=== PATIENT | female | born 1960 | race Caucasian/White ===

== ENCOUNTER → 2024-07-14 12:58 | Outpatient (REF) | payer BC, SELFPAY | LOC: RAD 12:58 | PROVIDERS: ATTENDING PHYSICIAN Urology; FAMILY PHYSICIAN Family Medicine | DX: N30.10 Interstitial cystitis (chronic) without hematuria (principal); N39.41 Urge incontinence; N81.6 Rectocele | CPT/HCPCS: 76770; 76856 ==

== ENCOUNTER 2024-07-18 14:00 | Emergency (ER) | payer BC, SELFPAY ==
[2024-07-18 14:04] VITALS: BP 143/79
[2024-07-18 14:31] LABS: Urine Albumin 1+ (Neg - Trace); Urine Bilirubin Negative (Negative); Urine Character Slightly Cloudy (Clear); Urine Color Yellow; Urine Glucose 3+ (Negative); Urine Ketone 2+ (Negative); Urine Leukocyte 2+ (Negative); Urine Nitrite Negative (Negative); Urine Occult Blood 3+ (Negative); Urine Urobilinogen Negative (Neg - 1+)
[2024-07-18 14:32] LABS: % Basophils 0.5 % (0-2); % Eosinophils 0.2 % (0-6); % Immature Granulocytes 0.4 % (0-0.5); % Lymphocytes 19.7 % (20.5-51.1); % Monocytes 4.3 % (1.7-9.3); % Neutrophils 74.9 % (42.2-75.2); Absolute Basophils 0.1 10^3/uL (0-0.2); Absolute Immature Granulocytes 0.1 10^3/uL (0-0.05); Absolute Lymphocytes 2.9 10^3/uL (1.2-3.4); Absolute Monocytes 0.6 10^3/uL (0.1-0.6); Absolute Neutrophils 11.2 10^3/uL (1.4-6.5); Hematocrit 42.1 % (37.0-47.0); Hemoglobin 13.9 g/dL (12.0-16.0); Mean Corpuscular Volume 87.9 fL (81.0-99.0); Mean Platelet Volume 9.5 fL (7.4-10.4); Nucleated Red Blood Cells % 0 %; Platelet Count 360 10^3/uL (130-400); Red Blood Cell Count 4.79 10^6/uL (4.20-5.40); Red Cell Dist. Width 13.4 % (11.5-14.5); White Blood Cell Count 14.9 10^3/uL (4.8-10.8)
[2024-07-18 14:42] LABS: ALT (SGPT) 43 U/L (0-35); AST (SGOT) 32 U/L (14-36); Albumin 4.7 g/dl (3.5-5.0); Alkaline Phosphatase 82 U/L (38-126); Blood Urea Nitrogen 18 mg/dl (7-17); Calcium 9.9 mg/dl (8.4-10.2); Carbon Dioxide 23 mmol/L (22-30); Chloride 103 mmol/L (98-107); Glucose 256 mg/dl (70-99); Potassium 3.6 mmol/L (3.5-5.1); Sodium 137 mmol/L (135-145); Total Bilirubin 0.6 mg/dl (0.2-1.3); Total Protein 7.2 g/dl (6.3-8.2); eGFR > 60.00
[2024-07-18 14:45] LABS: Urine Bacteria Few (Negative); Urine Red Blood Cell 30-40 /HPF (0-2); Urine White Cell >100 /HPF (0-5)
--- NOTE | 2024-07-18 15:23 | ED.GENMED ---
History of Present Illness
<Geneva Gallagher PA-C - Last Filed: 07/18/24 22:16>
General
Chief Complaint: Abnormal Lab Value
Source: patient
Exam Limitations: none
Time Seen by Provider: 07/18/24 15:21
Nursing documentation reviewed up to this point in time: agreed with
History of Present Illness
History of Present Illness:
This is a 63-year-old female with past medical history of interstitial cystitis, diabetes, IBS presents emergency department today with concerns of elevated white blood cell count and pelvic pain and burning with urination. Patient states that she
has had interstitial cystitis and recurrent UTIs for many years however she started to have lower abdominal pain and noted mental status change the past few days. Patient states that she felt loopy and more lethargic and reported to [facility]. Patient states that at the time, they noted her to be acidotic on her blood work noted elevated white blood cell count. Patient was told that she has sepsis and was told she has possible cancer on her CAT scan. Patient states that she
was not receiving appropriate care at that hospital and left that hospital AMA. Patient states that the CAT scan was read incorrectly at that time and is requesting a repeat CAT scan today. Patient denies any fevers or chills, chest pain,
shortness of breath, hematuria, flank pain. Patient did say the urinalysis that they did at that hospital came back concerning for infection however the urine culture came back negative. Patient is currently taking cefuroxime, she had 2 doses of
this.
Review of Systems
<Geneva Gallagher PA-C - Last Filed: 07/18/24 22:16>
Review of Systems
All Other Systems: ROS reviewed and negative except as documented in HPI and ROS
Phy Exam
<Geneva Gallagher PA-C - Last Filed: 07/18/24 22:16>
Physical Exam
Physical Exam:
General: Patient is well appearing and in no acute distress; non-toxic
Skin: Warm and dry, no rashes or lesions
Head: Normocephalic, atraumatic
Eyes: Sclera non-icteric. EOMs intact. PERRLA.
Cardiac: Mildly tachycardic otherwise regular rhythm, normal
Peripheral Vascular: No lower extremity swelling or edema.
Pulm: Normal respiratory effort, no wheezes, rales, or rhonchi
Abdomen: No abdominal tenderness to palpation
Neuro: CN II-XII intact, no focal neurologic deficits.
Psychiatric: Appropriate mood and affect.
Course
<Geneva Gallagher PA-C - Last Filed: 07/18/24 22:16>
Orders/Labs/Results
Orders:
Orders
07/18/24 14:18
CMP [Comprehensive Metabolic Panel] Urgent
07/18/24 14:19
Complete Blood Count/With Diff Urgent
Urinalysis Reflex To Culture Urgent
Date Specimen was Collected: 07/18/24
Time Specimen was Collected: 14:11
Urine Microscopic Reflex Cult Urgent
Urine Culture Urgent
ANIKA Source: U
Specimen Description:
Date Specimen was Collected: 07/18/24
Time Specimen was Collected: 14:11
07/18/24 15:56
0.9% Sodium Chloride 1000 ml [Nss] 1,000 ml IV BOLUS
Phenazopyridine HCl [Pyridium] 100 mg PO NOW STA
07/18/24 16:07
CT Abd/pel Without Iv Or Oral Urgent
Comment:
Reason For Exam: diffuse lower abdominal pain
Abnormal Lab Results
07/18/24 07/18/24
14:18 14:19
WBC 14.9 H 10^3/uL
(4.8-10.8)
Abs Immat Gran (auto) 0.1 H 10^3/uL
(0-0.05)
Absolute Neuts (auto) 11.2 H 10^3/uL
(1.4-6.5)
Lymphocytes % 19.7 L %
(20.5-51.1)
BUN 18 H mg/dl
(7-17)
Glucose 256 H mg/dl
(70-99)
ALT 43 H U/L
(0-35)
Urine Ketones 2+ A
(Negative)
Ur Occult Blood Reflex 3+ A
(Negative)
Leukocyte Esterase Rfl 2+ A
(Negative)
Urine RBC 30-40 A /HPF
(0-2)
Urine WBC (Reflex) >100 A /HPF
(0-5)
Urine Bacteria (Reflex) Few A
(Negative)
Urine Glucose 3+ A
(Negative)
Urine Albumin (Reflex) 1+ A
(Neg - Trace)
07/18/24 14:19
07/18/24 14:18
Vital Signs
Initial and Last Documented VS:
Initial Vital Signs
Temp Pulse Resp BP Pulse Ox
98.2 F 102 16 143/79 98
07/18/24 14:04 07/18/24 14:04 07/18/24 14:04 07/18/24 14:04 07/18/24 14:04
Last Documented Vital Signs
Temp Pulse Resp BP Pulse Ox
97.9 F 101 16 157/82 100
07/18/24 18:34 07/18/24 18:34 07/18/24 14:04 07/18/24 18:34 07/18/24 18:34
Manuelitolt;Earl Asif, DO - Last Filed: 07/18/24 17:33>
Orders/Labs/Results
Orders:
Orders
07/18/24 14:18
CMP [Comprehensive Metabolic Panel] Urgent
07/18/24 14:19
Complete Blood Count/With Diff Urgent
Urinalysis Reflex To Culture Urgent
Date Specimen was Collected: 07/18/24
Time Specimen was Collected: 14:11
Urine Microscopic Reflex Cult Urgent
Urine Culture Urgent
ANIKA Source: U
Specimen Description:
Date Specimen was Collected: 07/18/24
Time Specimen was Collected: 14:11
07/18/24 15:56
0.9% Sodium Chloride 1000 ml [Nss] 1,000 ml IV BOLUS
Phenazopyridine HCl [Pyridium] 100 mg PO NOW STA
07/18/24 16:07
CT Abd/pel Without Iv Or Oral Urgent
Comment:
Reason For Exam: diffuse lower abdominal pain
Abnormal Lab Results
07/18/24 07/18/24
14:18 14:19
WBC 14.9 H 10^3/uL
(4.8-10.8)
Abs Immat Gran (auto) 0.1 H 10^3/uL
(0-0.05)
Absolute Neuts (auto) 11.2 H 10^3/uL
(1.4-6.5)
Lymphocytes % 19.7 L %
(20.5-51.1)
BUN 18 H mg/dl
(7-17)
Glucose 256 H mg/dl
(70-99)
ALT 43 H U/L
(0-35)
Urine Ketones 2+ A
(Negative)
Ur Occult Blood Reflex 3+ A
(Negative)
Leukocyte Esterase Rfl 2+ A
(Negative)
Urine RBC 30-40 A /HPF
(0-2)
Urine WBC (Reflex) >100 A /HPF
(0-5)
Urine Bacteria (Reflex) Few A
(Negative)
Urine Glucose 3+ A
(Negative)
Urine Albumin (Reflex) 1+ A
(Neg - Trace)
07/18/24 14:19
07/18/24 14:18
Vital Signs
Initial and Last Documented VS:
Initial Vital Signs
Temp Pulse Resp BP Pulse Ox
98.2 F 102 16 143/79 98
07/18/24 14:04 07/18/24 14:04 07/18/24 14:04 07/18/24 14:04 07/18/24 14:04
Last Documented Vital Signs
Temp Pulse Resp BP Pulse Ox
97.9 F 101 16 157/82 100
07/18/24 18:34 07/18/24 18:34 07/18/24 14:04 07/18/24 18:34 07/18/24 18:34
<Geneva Gallagher PA-C - Last Filed: 07/18/24 22:16>
MDM/Problems Addressed
Differential Diagnosis Includes:
see below
MDM/Problems Addressed:
NUMBER AND COMPLEXITY OF PROBLEMS ADDRESSED AT THE ENCOUNTER
� Chronic conditions affecting care: diabetes, interstitial cystitis
� Acute Exacerbation and/or Progression of Chronic Illness: interstitial cystitis
� Differential Diagnosis includes:
AMOUNT AND/OR COMPLEXITY OF DATA TO BE REVIEWED AND ANALYZED
� I performed an independent evaluation of and my interpretation is:
CT: CT scan reveals 3 low-density hepatic lesions which may be benign or malignant but worrisome for hepatic metastasis, as well as a renal cyst but no evidence of renal stone or ureteral dilation
Laboratory Studies: Leukocytosis of 14 noted, no evidence of acidosis
Other:
� Review of other/old records: No previous ER physician documentation to review, no hospital discharge summaries for
� Clinical information was obtained by an independent historian: and daughter provided history of HPI and hospital course
� Prescriptions/Medications Considered but not given: none
� Further testing considered but not performed: n/a
RISK OF COMPLICATIONS AND/OR MORBIDITY OR MORTALITY OF PATIENT MANAGEMENT
� Social determinants of health affecting care: none
� Discussion with other providers: ER attending Dr. Asif and Dr. Rosa
� Escalation of care including admission/observation vs risk of discharge considered:
This is a 63-year-old female with past medical history of interstitial cystitis, diabetes, IBS presents emergency department today with concerns of elevated white blood cell count and pelvic pain and burning with urination. Patient states that she
has had interstitial cystitis and recurrent UTIs for many years however she started to have lower abdominal pain and noted mental status change the past few days. She was seen at [facility] and was told that she had her CAT scan read
incorrectly and her primary care provider recommended that patient leave AMA. She requested a repeat CAT scan here. Her CAT scan here demonstrates multiple hepatic lesions concerning for metastasis, primary source unknown.
Discussed these findings with patient. Patient concerned that she has an infection in her body somewhere considering her elevated white count. I discussed how this could be from the UTI however unlikely since her culture from the other hospital
came back negative, discussed finishing the course of her current antibiotic. Likely leukemoid reaction. Patient is concerned about the lesions on her CAT scan and is requesting admission for MRI and PET scan. I discussed how this is an
outpatient study and discussed that there is no indication for admission at this time. Dr. Rosa also had discussion with patient. We reviewed blood work with patient as well. I did send patient information to Dr. Green, hematology
oncologist on-call who sent patient's information to the office so that patient can have urgent outpatient follow-up. I advised patient to call the office should she not hear from them tomorrow morning. Patient stable for discharge.
<Geneva Gallagher PA-C - Last Filed: 07/18/24 22:16>
*Critical Care Note
Total Time (30-74mins, 75-104mins- exclusive of procedures): Not Applicable
ED Attending Note
<Geneva Gallagher PA-C - Last Filed: 07/18/24 22:16>
-
Portions of this chart may have been created with voice recognition software.� Occasional wrong word or��sound alike� substitutions may have occurred due to the inherent limitations of voice recognition software.
<Earl Asif DO - Last Filed: 07/18/24 17:33>
ED Attending Note
Patient seen and examined by attending physician: Yes
I performed a history and physical exam of patient and discussed management with resident, I reviewed resident's note and agree with documented findings and plan of care.: Yes
ED Attending Note:
Seen with PA examined independently 63-year-old female interstitial cystitis admitted to an outside hospital left against medical apparently are unhappy with the care white count is up she is nontoxic, is already on antibiotics. Question of a
ureteral stone on an ultrasound but not on the CT family requesting a repeat CT assuming CT does not show urinary obstruction I see no clear indication for admission
Discharge Plan
Departure
Patient Disposition: Home (Routine Discharge)
Date of Disposition: 07/18/24
Time of Disposition: 19:59
Patient with high blood pressure during this ER visit?: Yes
Condition: Good
Discharge Problem:
Liver lesion, Kidney cysts
Instructions: BLOOD PRESSURE
Prescriptions:
No Action
cefuroxime axetil 250 mg Tablet
250 mg PO BID
trazodone 100 mg Tablet
300 mg PO HS
fluticasone propionate [Flonase] 50 mcg/actuation [place],Suspension
1 spray INTRANASAL DAILY
buspirone 15 mg Tablet
15 mg PO TID
lisdexamfetamine 50 mg Capsule
50 mg PO DAILY
levocetirizine [Xyzal] 5 mg Tablet
5 mg PO HS
fluoxetine 60 mg Tablet
60 mg PO DAILY
mirabegron [Myrbetriq] 50 mg Tablet Extended Release 24 Hr
50 mg PO DAILY
Synjardy XR 12.5-1,000 mg Tablet, Ir - Er, Biphasic 24hr
2 tab PO DAILY
Mounjaro 10 mg/0.5 mL Pen Injector
10 mg SC SA
Referrals:
Qamar Green DO [Active] - Call in 1-3 days for appt
Jorgito Baldwin DO [Family Provider] -
Activity Restrictions/Additional Instructions:
Dr. Green, our oncologist patient observation assistant, has sent your information to the air control/anti air warfare officer. You should receive a call tomorrow to schedule an appointment. Should you not receive a call, please call the attached number tomorrow morning.
Please call your PCP tomorrow morning to schedule abdominal MRI so that Dr. Green's office can have this information in follow up.
PLEASE RETURN TO THE EMERGENCY DEPARTMENT SHOULD YOU EXPERIENCE CHEST PAIN, SHORTNESS OF BREATH, PERSISTENT FEVERS/CHILLS, INTRACTABLE NAUSEA OR VOMITING, OR ANY OTHER SIGNS OR SYMPTOMS WORRISOME TO YOU.
Interventions
Interventions:
*Risk Screen - Suicide Last Done: 07/18/24 14:04
*General Assessment Last Done: 07/18/24 14:04
ED- Fall Risk Assessment Last Done: 07/18/24 15:09
*ED COVID-19 Vaccine History Last Done: 07/18/24 14:04
*Nursing Disposition Last Done: 07/18/24 20:11
Discharge Date and Time
Discharge Date/Time: 07/18/24 20:11
Print Language: AMHARIC
[2024-07-18] MEDS: NSS 1000 IV (16:18)
[2024-07-18] MEDS: Pyridium 100 MG PO (16:18)
[2024-07-18 18:34] VITALS: BP 157/82
== END 2024-07-18 20:11 | disposition home or self-care (01) ==
LOC: EMR 14:00
PROVIDERS: EMERGENCY PHYSICIAN Emergency Medicine; FAMILY PHYSICIAN Family Medicine
DX: K76.9 Liver disease, unspecified (principal); N28.1 Cyst of kidney, acquired; E11.9 Type 2 diabetes mellitus without complications
CPT/HCPCS: 96360; 99284; 74176; 80053; 81003; 81015; 85025; 87086

== ENCOUNTER → 2024-08-20 16:03 | Outpatient (REF) | payer BC, SELFPAY | LOC: RAD 16:03 | PROVIDERS: ATTENDING PHYSICIAN Urology; FAMILY PHYSICIAN Family Medicine | DX: N39.41 Urge incontinence (principal) | CPT/HCPCS: 74170; Q9967 ==

== ENCOUNTER → 2024-09-08 12:50 | Outpatient (REF) | payer BC, MEDICARE, SELFPAY | LOC: PAVMRI 12:50 | PROVIDERS: ATTENDING PHYSICIAN Internal Medicine Hematology & Oncology; FAMILY PHYSICIAN Family Medicine; REFERRING PHYSICIAN Urology | DX: C78.7 Secondary malignant neoplasm of liver and intrahepatic bile duct (principal); R93.2 Abnormal findings on diagnostic imaging of liver and biliary tract; D72.829 Elevated white blood cell count, unspecified | CPT/HCPCS: 74183; A9575 ==